=== PATIENT | female | born 1995 | race Caucasian/White ===

== ENCOUNTER 2022-05-30 10:33 | Emergency (ER) | payer OTHER, SELFPAY ==
[2022-05-30 11:00] VITALS: BP 113/71; PULSE 81; RESP 20; TEMP 37; O2SAT 100; BMI 24.3
--- NOTE | 2022-05-30 12:46 | CRLHL7_ITS ---
For Patients: As a result of the Century Cures Act, medical imaging exams and procedure reports are released immediately into your electronic medical record. You may view this report before your referring provider. If you have questions, please contact your health care provider. INDICATION: LLQ pelvic pain HISTORY: Left lower quadrant abdominal pain. COMPARISON: None. TECHNIQUE: Endovaginal imaging of the pelvis was obtained to better evaluate the adnexa and endometrial complex. Color/spectral Doppler was performed to evaluate for ovarian torsion. FINDINGS: Uterus measures 8.0 x 3.8 x 4.7 cm. Endometrial complex measures 10 mm in thickness. The right ovary measures 3.4 x 1.5 x 1.7 cm. The left ovary measures 3.3 x 1.8 x 1.6 cm. There is no adnexal mass. No evidence on grayscale imaging, or color/spectral Doppler, for ovarian torsion. There is a small amount of free fluid adjacent to the right ovary. This appears anechoic. IMPRESSION: 1. No adnexal mass. 2. No evidence on grayscale imaging, or color/spectral Doppler, for ovarian torsion. 3. Uterine corpus/endometrial complex are within normal limits. Dictated by Sunny Toledo MD @ 05/30/2022 2:39:28 PM Dictated by: Sunny Toledo MD @ 05/30/2022 14:39:40 (Electronically Signed)
--- NOTE | 2022-05-30 12:48 | ED.GENADULT ---
HPI - General Adult General Time Seen by Provider: 12:48 Date Seen: 05/30/22 Chief complaint: Abdominal Pain Stated complaint: Abdominal Pain Time Seen by Provider: 05/30/22 12:35 Source: patient Mode of arrival: ambulatory Limitations: no limitations History of Present Illness HPI narrative: Patient is a pleasant 26 year white female who has had some loose stools today, some periumbilical and suprapubic discomfort over the last couple of days radiating a little bit to the left. Last menstrual period was 2 weeks ago. She reports she is not . She has had history of a left-sided DVT when she had mono in actually fell and they thought the trauma might have caused it. She has had no further bleeding or clotting problems, she has no leg swelling or pain. She has had no fever, chills, shortness of breath, chest pain., no dysuria or hematuria. No vomiting Related Data Home Medications Medication Instructions Recorded Confirmed No Known Home Medications 05/30/22 05/30/22 Allergies Allergy/AdvReac Type Severity Reaction Status Date / Time amoxicillin Allergy Rash Verified 05/30/22 11:03 Penicillins Allergy Verified 05/30/22 11:03 Review of Systems Status of ROS: Reports: 10 or more systems reviewed and unremarkable except as noted in History and below [facility] History Smoking Status: Never smoker Do you use any of these nicotine containing products: None Second hand tobacco smoke exposure: No How often do you have a drink containing alcohol: 2-4 times a month How many standard drinks containing alcohol do you have on a typical day: 3 or 4 How often do you have six or more drinks on one occasion: Never AUDIT-C Alcohol total score: 3 Non-prescribed substance use: denies use Exam Narrative: Exam Narrative: Objective: Vital signs unremarkable in general patient is no apparent distress Noncyanotic, talks in full and even sentences HEENT is unremarkable neck supple nodes pulse regular abdomen benign soft nontender except interim mi lead tender in her suprapubic region, no rebound, no guarding. No palpable masses. Negative CVA tenderness Extremities are no edema Neurologic nonfocal, negative Homans sign bilaterally, there is no swelling in the left lower extremity Skin periphery is warm and dry Const: Vital Signs, click to edit/add: Vital Signs - 24 hr 05/30/22 11:00 05/30/22 15:05 Temperature 98.6 F Pulse Rate [Pulse Oximeter] 81 79 Respiratory Rate 20 18 Blood Pressure [Ri ght Upper Arm] 113/71 120/72 Pulse Oximetry 100 Oxygen Delivery Me thod Room Air Course Vital Signs Vital signs: Initial Vital Signs Temperature 98.6 F 05/30/22 11:00 Temperature Source Temporal Artery Scan 05/30/22 11:00 Pulse Rate 81 05/30/22 11:00 Respiratory Rate 20 05/30/22 11:00 Blood Pressure 113/71 05/30/22 11:00 Blood Pressure Mean 85 05/30/22 11:00 Blood Pressure Position Sitting 05/30/22 11:00 Pulse Oximetry 100 05/30/22 11:00 Oxygen Delivery Method 05/30/22 11:00 Vital Signs Temperature 98.6 F 05/30/22 11:00 Pulse Rate 81 05/30/22 11:00 Respiratory Rate 20 05/30/22 11:00 Blood Pressure 113/71 05/30/22 11:00 Pulse Oximetry 100 05/30/22 11:00 Oxygen Delivery Method 05/30/22 11:00 Temperature 98.6 F 05/30/22 11:00 Pulse Rate 79 05/30/22 15:05 Respiratory Rate 18 05/30/22 15:05 Blood Pressure 120/72 05/30/22 15:05 Pulse Oximetry 100 05/30/22 11:00 Oxygen Delivery Method 05/30/22 11:00 Medical Decision Making [facility] Narrative Medical decision making narrative: Patient is a 26 year white female has had some lower abdominal discomfort for a couple of days and now with diarrhea, question if she has a colitis type presentation. No blood in her stool, likely viral. I think for completeness however be goss to get ultrasound of her pelvis make sure she has never been ovarian cyst or torsion. Will also get a urinalysis, lab studies, IV fluid, IV Toradol given. With a test as well although that is likely negative given her LMP. Disposition pending findings Addendum: The patient has a small amount of fluid in the cul-de-sac per Radiology read, but no big cyst, good blood flow to both ovaries no other pathology. Her CRP is negative white count normal, hemoglobin normal ER profile is completely unremarkable other than slightly elevated AST and ALT. Her CRP is negative as mention urinalysis looks negative. Lab Data Labs: Lab Results 05/30/22 05/30/22 05/30/22 Range/Units 13:00 13:13 13:13 WBC 7.85 (4.50-11.00) K/uL RBC 4.53 (4.00-5.20) m/uL Hgb 14.5 (12.0-16.0) gm/dL Hct 41.8 (33.0-51.0) % MCV 92 (80-100) fL MCH 32 (26-34) pg MCHC 35 (32-36) gm/dL RDW Coeff of Quinn 11.6 (11.5-15.5) % Plt Count 243 (140-440) K/uL Neut % (Auto) 58.7 (42.0-72.0) % Lymph % (Auto) 30.6 (20-44) % [place] % (Auto) 6.6 (0.0-11.0) % Eos % (Auto) 3.7 (0.0-7.0) % Baso % (Auto) 0.3 (0.0-3.0) % Neut # (Auto) 4.61 (1.7-7.0) K/uL Lymph # (Auto) 2.40 (0.90-2.90) K/uL [place] # (Auto) 0.50 (0.00-0.90) K/UL Eos # (Auto) 0.29 (0.00-0.50) K/uL Baso # (Auto) 0.02 (0.00-0.30) K/uL Sodium 140 (135-149) mmol/L Potassium 4.1 (3.6-5.1) mmol/L Chloride 106 (96-114) mmol/L Carbon Dioxide 28 (20-32) mmol/L BUN 13 (5-24) mg/dL Creatinine 0.7 (0.5-1.5) mg/dL Estimated Creat Clear 117.39 Estimated GFR 121 ml/min Glucose 77 (60-115) mg/dL Calcium 9.0 (8.4-10.6) mg/dL Total Bilirubin 0.5 (0.1-1.5) mg/dL Direct Bilirubin 0.2 (0.0-0.5) mg/dL AST 172 H (12-35) U/L ALT 51 H (4-35) U/L Alkaline Phosphatase 75 (40-150) U/L C-Reactive Protein < 0.5 L (0.5-1.0) mg/dL Total Protein 7.6 (6.0-8.3) g/dL Albumin 4.6 (3.3-5.0) g/dL Amylase 80 (18-89) U/L HCG, Qual (Negative) Urine Color Yellow (Yellow) Urine Appearance Clear (Clear) Urine pH 7.5 (5.0-8.5) Ur Specific [place] 1.020 (1.000-1.030) Urine Protein Negative (Negative) Urine Glucose (UA) Negative (Negative) Urine Ketones Negative (Negative) Urine Blood 1+ A (Negative) Urine Nitrite Negative (Negative) Urine Bilirubin Negative (Negative) Urine Urobilinogen 0.2 (0.2-1.0) Ur Leukocyte Esterase Trace A (Negative) Urine RBC 0-2 (0-2) Urine WBC 0-2 (0-5) Ur Squamous Epith Cells Few (None-Few) Amorphous Sediment Few A (None) Urine Bacteria Few A (None) 05/30/22 Range/Units 13:13 WBC (4.50-11.00) K/uL RBC (4.00-5.20) m/uL Hgb (12.0-16.0) gm/dL Hct (33.0-51.0) % MCV (80-100) fL MCH (26-34) pg MCHC (32-36) gm/dL RDW Coeff of Quinn (11.5-15.5) % Plt Count (140-440) K/uL Neut % (Auto) (42.0-72.0) % Lymph % (Auto) (20-44) % [place] % (Auto) (0.0-11.0) % Eos % (Auto) (0.0-7.0) % Baso % (Auto) (0.0-3.0) % Neut # (Auto) (1.7-7.0) K/uL Lymph # (Auto) (0.90-2.90) K/uL [place] # (Auto) (0.00-0.90) K/UL Eos # (Auto) (0.00-0.50) K/uL Baso # (Auto) (0.00-0.30) K/uL Sodium (135-149) mmol/L Potassium (3.6-5.1) mmol/L Chloride (96-114) mmol/L Carbon Dioxide (20-32) mmol/L BUN (5-24) mg/dL Creatinine (0.5-1.5) mg/dL Estimated Creat Clear Estimated GFR ml/min Glucose (60-115) mg/dL Calcium (8.4-10.6) mg/dL Total Bilirubin (0.1-1.5) mg/dL Direct Bilirubin (0.0-0.5) mg/dL AST (12-35) U/L ALT (4-35) U/L Alkaline Phosphatase (40-150) U/L C-Reactive Protein (0.5-1.0) mg/dL Total Protein (6.0-8.3) g/dL Albumin (3.3-5.0) g/dL Amylase (18-89) U/L HCG, Qual Negative (Negative) Urine Color (Yellow) Urine Appearance (Clear) Urine pH (5.0-8.5) Ur Specific [place] (1.000-1.030) Urine Protein (Negative) Urine Glucose (UA) (Negative) Urine Ketones (Negative) Urine Blood (Negative) Urine Nitrite (Negative) Urine Bilirubin (Negative) Urine Urobilinogen (0.2-1.0) Ur Leukocyte Esterase (Negative) Urine RBC (0-2) Urine WBC (0-5) Ur Squamous Epith Cells (None-Few) Amorphous Sediment (None) Urine Bacteria (None) Discharge Plan Discharge Clinical Impression: Abdominal pain, acute, Diarrhea Patient Disposition: Home w/ Parent or Adult Condition: Improved Additional Instructions: Rest light activity, fluids, Tylenol Advil as needed. Follow up with regular doctor in 2-3 days, return to ED sooner worsening or changes. Activity Level: Light activity Discharge Diet: Regular Prescriptions: No Action No Known Home Medications Stand Alone Forms: [employer] Info Instructions
[2022-05-30 13:10] LABS: Appearance Urine Clear (Clear); Bilirubin Urine Negative (Negative); Blood Urine 1+ (Negative); Color Urine Yellow (Yellow); Glucose Urine Negative (Negative); Ketones Urine Negative (Negative); Leukocyte Esterase Urine Trace (Negative); Nitrite Urine Negative (Negative); Protein Urine Negative (Negative); Urobilinogen Urine 0.2 (0.2-1.0); pH Urine 7.5 (5.0-8.5)
[2022-05-30 13:18] LABS: Basophils Absolute Auto 0.02 K/uL (0.00-0.30); Basophils Percent Auto 0.3 % (0.0-3.0); Eosinophils Absolute Auto 0.29 K/uL (0.00-0.50); Eosinophils Percent Auto 3.7 % (0.0-7.0); Hematocrit 41.8 % (33.0-51.0); Hemoglobin* 14.5 gm/dL (12.0-16.0); Immature Granulocytes Abs Auto 0.01 K/uL (0.00-0.30); Immature Granulocytes Pct Auto 0.1 %; Lymphocytes Percent Auto 30.6 % (20-44); Mean Corpuscular HGB Conc 35 gm/dL (32-36); Mean Corpuscular Hemoglobin 32 pg (26-34); Mean Corpuscular Volume 92 fL (80-100); Monocytes Percent Auto 6.6 % (0.0-11.0); Neutrophils Absolute Auto 4.61 K/uL (1.7-7.0); Neutrophils Percent Auto 58.7 % (42.0-72.0); Platelet Count* 243 K/uL (140-440); RDW Coefficient of Variation % 11.6 % (11.5-15.5); Red Blood Count 4.53 m/uL (4.00-5.20); White Blood Count* 7.85 K/uL (4.50-11.00)
[2022-05-30 13:25] LABS: Slide Review Reflex No
[2022-05-30 13:37] LABS: Amorphous Sediment Urine Few; Bacteria Urine Few; RBC Urine 0-2 (0-2); Squamous Epithelial Cell Urine Few (None-Few); WBC Urine 0-2 (0-5)
[2022-05-30 13:44] LABS: Albumin* 4.6 g/dL (3.3-5.0); Chloride* 106 mmol/L (96-114); Potassium* 4.1 mmol/L (3.6-5.1); Sodium* 140 mmol/L (135-149)
[2022-05-30] MEDS: 0.9 % SODIUM CHLORIDE 1000 ml 1,000 ML 6000 ML IV (13:44)
--- NOTE | 2022-05-30 13:45 | ED.NURSE ---
Pt to US
[2022-05-30 13:46] LABS: Amylase* 80 U/L (18-89); Creatinine* 0.7 mg/dL (0.5-1.5); Est. Creatinine Clearance* 117.39; Estimated Glomerular Filt Rate 121 ml/min
[2022-05-30 13:47] LABS: Alanine Aminotransferase* 51 U/L (4-35); Alkaline Phosphatase* 75 U/L (40-150); Aspartate Amino Transferase* 172 U/L (12-35); Bilirubin Direct* 0.2 mg/dL (0.0-0.5); Bilirubin Total* 0.5 mg/dL (0.1-1.5); Blood Urea Nitrogen* 13 mg/dL (5-24); Carbon Dioxide* 28 mmol/L (20-32); Glucose* 77 mg/dL (60-115); HCG Qualitative Serum* Negative (Negative); Total Protein* 7.6 g/dL (6.0-8.3)
[2022-05-30 13:51] LABS: C Reactive Protein* < 0.5 mg/dL (0.5-1.0)
[2022-05-30] MEDS: KETOROLAC 30 MG/ML inj IVP (14:17)
[2022-05-30 15:05] VITALS: BP 120/72; PULSE 79; RESP 18
== END 2022-05-30 15:06 | disposition home or self-care (01) ==
LOC: ED 12:57
PROVIDERS: Emergency Provider Family Medicine
DX: R10.9 Unspecified abdominal pain (principal); R19.7 Diarrhea, unspecified
CPT/HCPCS: 36415; 76830; 80048; 80076; 81001; 82150; 84703; 85025; 86140; 87086; 93976; 96361; 96374; 99284; J1885; J7030